=== PATIENT | female | born 1965 | race Caucasian/White ===

== ENCOUNTER 2021-12-25 18:33 | Emergency (ER) | payer OTHER ==
[2021-12-25 20:02] LABS: BASOPHIL 0.4 % (0-2); EOSINOPHIL 1.9 % (0-5); HCT 44.5 % (37.0-47.0); HGB 14.9 g/dl (12.5-16.0); LYMPHOCYTE 16.6 % (15-48); MCH 29.6 pg (25.0-31.0); MCHC 33.5 g/dL (32.0-36.0); MCV 88.3 fL (78.0-100.0); MONOCYTE 14.7 % (0-12); MPV 10.2 fL (6.0-9.5); NEUTROPHIL 66.2 % (41-80); NRBC 0; PLT 190 K/uL (150-400); RBC 5.04 M/uL (4.20-5.40); RDW 13.4 % (11.5-14.0); WBC 5.3 K/uL (4.0-10.5)
[2021-12-25 21:01] LABS: ALBUMIN 3.8 g/dL (3.4-5.0); BILIRUBIN - TOTAL 0.4 mg/dL (0.2-1.0); BUN/CREAT RATIO (CALC) 14.8 RATIO; CREATININE 0.81 mg/dL (0.51-0.95); GLOBULIN (CALCULATION) 3.3 g/dL; POTASSIUM 3.8 mmol/L (3.5-5.1); TOTAL PROTEIN 7.1 g/dL (6.4-8.2)
== END 2021-12-25 22:47 | disposition home or self-care (01) ==
LOC: FER 18:33
PROVIDERS: Emergency Medicine
DX: U07.1 COVID-19 (principal); Z88.1 Allergy status to other antibiotic agents
CPT/HCPCS: 36415; 71045; 71275; 80053; 84484; 85025; 85379; 94010; 94640; 94664; J1885; J7030; Q9967